=== PATIENT | male | born 1990 | race Caucasian/White ===

== ENCOUNTER 2022-12-20 18:10 | Emergency (ER) | payer BC ==
[2022-12-20] MEDS ORDERED: Ketorolac 30 MG/ML SDV IM ONE (23:05)
== END 2022-12-21 00:25 | disposition home or self-care (01) ==
LOC: MW.ED 18:10
DX: N50.3 Cyst of epididymis (principal)
CPT/HCPCS: 76870; 93976; 96372; 99284; J1885